=== PATIENT | female | born 1990 | race Caucasian/White ===

== ENCOUNTER 2019-08-04 07:20 | Emergency (ER) | payer OTHER ==
[~2019-08-04] VITALS: Ht 165.1 cm; Wt 81.6 kg
--- NOTE | 2019-08-04 07:35 | NUR ---
Dr Simon at the bedside for MSE.
[2019-08-04 07:38] LABS: *BILIRUBIN,URIN NEGATIVE (NEGATIVE); *BLOOD, URINE 2+ (NEGATIVE); *CLARITY,URINE CLEAR (CLEAR); *COLOR,URINE YELLOW (YELLOW); *KETONES,URINE NEGATIVE (NEGATIVE); *UROBILINOGEN,URINE 0.2 E.U./dl (NORMAL); LEUKOCYTE ESTERASE ,URINE NEGATIVE (NEGATIVE); NITRITE, URINE NEGATIVE (NEGATIVE); PH,URINE 5.5 (5.0-8.0); UGLUCOSE NEGATIVE (NEGATIVE)
[2019-08-04 07:48] LABS: *URINE HCG, QUAL NEGATIVE (NEGATIVE); BACTERIA,URINE FEW /HPF (NONE SEEN); MUCUS,URINE FEW /LPF (0-FEW); SQUAMOUS EPITHELIAL CELL,UR FEW /HPF (NONE SEEN); WBC,URINE 0-3 /HPF (0-3)
[2019-08-04 09:41] VITALS: BP 117/68
--- NOTE | 2019-08-04 09:42 | NUR ---
Patient discharged to home in stable condition. Written and verbal after care instructions given. Patient verbalizes understanding of instructions. Stressed follow up or return to ER for worsening s/s.
== END 2019-08-04 09:42 | disposition home or self-care (01) ==
LOC: ER 07:20
DX: R10.12 Left upper quadrant pain (principal); N39.0 Urinary tract infection, site not specified
CPT/HCPCS: 84703; A4663